=== PATIENT | male | born 1955 | race Caucasian/White ===

== ENCOUNTER 2017-12-10 21:02 | Inpatient (IN) | payer OTHER ==
[~2017-12-10] VITALS: Ht 170.2 cm; Wt 72.6 kg
--- NOTE | 2017-12-10 23:10 | NUR ---
INTAKE ASSESSMENT BP: 169/95, HR:89, RR:16, SpO2: 95%, T: 98 Pt is in stable condition and able to be admitted on the unit. Unit protocols regarding medications and vital signs every four hours were explained. Pt verbalized understanding. Will continue admission upon arrival on the unit.
[2017-12-10] MEDS ORDERED: IBUP1CAP13 PO (23:22)
[2017-12-10] MEDS ORDERED: DICYCLOMINE HCL 20 MG TABLET PO PRN (23:30)
[2017-12-10] MEDS ORDERED: MAG HYDROX/AL HYDROX/SIMETH 30 ML LIQUID UDC PO PRN (23:30)
[2017-12-10] MEDS ORDERED: LORAZEPAM 2 MG/1 ML VIAL IM PRN (23:30)
[2017-12-10] MEDS ORDERED: MAGNESIUM HYDROXIDE 30 ML LIQUID UDC PO PRN (23:30)
[2017-12-10] MEDS ORDERED: THIAMINE HCL 200 MG/2 ML VIAL IM ONE (23:30)
[2017-12-10] MEDS ORDERED: MIRALAX 17 GM POWD.PACK PO PRN (23:30)
[2017-12-10] MEDS ORDERED: ONDANSETRON ODT 4 MG TAB.RAPDIS SL PRN (23:30)
[2017-12-10] MEDS ORDERED: ONDANSETRON 4 MG/2 ML VIAL IM PRN (23:30)
[2017-12-10] MEDS ORDERED: LORAZEPAM 1 MG TABLET PO PRN ×2 (23:30)
[2017-12-10] MEDS ORDERED: LOPERAMIDE HCL 2 MG CAPSULE PO PRN ×2 (23:30)
[2017-12-10] MEDS ORDERED: IBUPROFEN 400 MG TABLET PO PRN (23:30)
[2017-12-10] MEDS ORDERED: ACETAMINOPHEN 325 MG TABLET PO PRN (23:30)
--- NOTE | 2017-12-10 23:30 | NUR ---
Admission note Pt is a 62 yo male, A+Ox4, presenting to [facility] for medically supervised ETOH withdrawal. Pt has NKA, is on DNR code status, and on Regular diet. Pt is 5'7" in height and 160 LBS in weight. Pt does not appear intoxicated, is well groomed, clothing in good condition, and has no apparent odor. Pt appears mildly anxious and agitated at this time. Respirations even and unlabored. Substance use/History Pt reports first starting to drink alcohol at the age of 18. Pt states, "I was just young and wanted to libertarian with my friends. I first started taking Ambien 3 months ago for insomnia. I used to take Tramadol frequently about 5 years ago which led me to go to treatment 4 years ago and ever since then i haven't taken it". 1. ETOH- first started drinking at the age of 18- currently drinking 4 to 6 beers 1x/week- Last drink was 4 beers on 12-09-17. 2. Ambien- first stated taking 3 months ago PO -currently taking 10mg QHS for insomnia- Last dose was 50mg on 12-09-17. Withdrawal Pt does not appear intoxicated at this time. Pt expresses typical withdrawal symptoms as, "just anxiety and agitation". Pt is currently noted with mild anxiety and agitation but in stable condition. W/S WNL. Consequences of Alcohol abuse Pt has no HX of seizure, withdrawal induced delirium, withdrawal induced cardiac complications, overdose. Pt states, "I may have had some blackouts when i was younger, but not any that i can recall. The only real problem that my drinking has caused me is that my does not like it very much, she is the type of person that thinks that if someone has just 1 drink then they are an alcoholic, i have been a severe alcoholic before so maybe she is right about me. Whenever my gets me upset or depressed, i tend to go buy a 6 pack and drink. I have never been to snf or gotten a DUI for drinking. One thing i will say though is that my brother has had alcohol/substance abuse issues and is now homeless and i don't even know if he's or alive, some people tell me that he's but i really have no idea". Medical/Psychiatric conditions 1. Anxiety- undiagnosed 2. Depression- undiagnosed 3. Insomnia- diagnosed 3 months ago 4. Left foot SX/Neuropathy - procedure performed " about 5 years ago" Pt has a primary care provider named Dr. Muñoz Psychiatric complications Pt has no HX of any psychiatric holds or episodes on delirium nor psychosis. Pt has no HX of SI/SA/HI. Treatment HX Pt expresses that the last time he was in treatment was for 3 weeks at "[facility]" in [place], [place] 4 years ago and continued sobriety for a total of 6 months from Mar 2013 - September 2013. Motivation Pt states, "I want to stop drinking so that i can go back to being sober and happy, to set a good example for my son, and to keep my happy. I don't usually have too many withdrawal symptoms besides anxiety and agitation. I have my friends from and my sponsor to thank for supporting me for a very long time. I am not sure what will be different this time but i am going to try my best." Respirations even and unlabored. Will continue to monitor. Addendum: 12/11/17 at 0708 by DANI DEL ANGEL LVN Pt has been drinking alcohol at a rate of 4 to 6 beers 1x/week for "about the past 3 years".
[2017-12-10 23:59] LABS: BASOPHILS # (AUTO) 0.1 K/uL (0.0-8.0); BASOPHILS % (AUTO) 0.9 % (0.0-2.0); EOSINOPHILS # (AUTO) 0.2 K/uL (0.0-0.7); EOSINOPHILS % (AUTO) 1.8 % (0.0-7.0); HEMOGLOBIN 13.7 g/dL (12.5-16.3); LYMPHOCYTES % (AUTO) 30.1 % (20.5-51.5); MEAN CORPUSCULAR HEMOGLOBIN 31.2 uug (23.8-33.4); MEAN CORPUSCULAR HGB CONC 35 g/dL (32.5-36.3); MONOCYTES # (AUTO) 0.5 K/uL (2.0-10.0); MONOCYTES % (AUTO) 5.4 % (0.0-11.0); NEUTROPHILS # (AUTO) 6.1 K/uL (1.8-8.9); NEUTROPHILS % (AUTO) 61.8 % (38.5-71.5); PLATELET COUNT (AUTO) 315 K/uL (152-348); RED BLOOD CELL COUNT(AUTO) 4.39 MIL/uL (4.06-5.63); WHITE BLOOD COUNT (AUTO) 9.9 K/uL (3.6-10.2)
[2017-12-11] MEDS: diphenhydrAMINE 50 MG CAPSULE PO PRN (00:14)
--- NOTE | 2017-12-11 00:14 | NUR ---
PRN Benadryl Pt c/o inability to sleep and requested for PRN Benadryl. Medication given and tolerated well. Will reassess within 1 HR. Will continue to monitor.
[2017-12-11 00:17] LABS: *AMPHETAMINE, URINE NEGATIVE (NEGATIVE); *BARBITURATE, URINE NEGATIVE (NEGATIVE); *CANNABINOID, URINE NEGATIVE (NEGATIVE); *COCCAINE, URINE NEGATIVE (NEGATIVE); *OPIATE, URINE NEGATIVE (NEGATIVE); *PHENCYCLIDINE SCREEN,URINE NEGATIVE (NEGATIVE)
[2017-12-11 00:19] LABS: ETHANOL < 3 MG/DL (0-0)
[2017-12-11 00:28] VITALS: BP 157/92
[2017-12-11 00:36] LABS: ALANINE AMINOTRANSFERASE 27 U/L (16-63); ALKALINE PHOSPHATASE 72 U/L (50-136); AMYLASE 37 U/L (25-115); ASPARTATE AMINOTRANSFERASE 16 U/L (15-37); BILIRUBIN,TOTAL 0.6 mg/dL (0.2-1.0); CARBON DIOXIDE 26 mmol/L (21-32); CHLORIDE 104 mmol/L (98-107); CREATININE 1.1 mg/dL (0.6-1.3); GLUCOSE 150 mg/dL (74-106); LIPASE 79 U/L (73-393); MAGNESIUM 1.9 mg/dL (1.8-2.4); POTASSIUM 3.2 mmol/L (3.5-5.1); TOTAL PROTEIN, SERUM 7.9 g/dL (6.4-8.2); UREA NITROGEN, BLOOD 28 mg/dL (7-18)
[2017-12-11 01:05] LABS: THYROID STIMULATING HORMONE 1.927 mIU/mL (0.358-3.740)
--- NOTE | 2017-12-11 01:10 | NUR ---
PRN Benadryl Reassessment Medication effective. Pt is resting well in bed. No s/s of ASE noted at this time. Respirations even and unlabored. Will continue to monitor.
--- NOTE | 2017-12-11 01:43 | NUR ---
PRN Maalox Pt c/o heartburn and requested for PRN Maalox. Medication given and tolerated well. Respirations even and unlabored. Will reassess within 1 HR. Will continue to monitor.
--- NOTE | 2017-12-11 02:40 | NUR ---
PRN Maalox Reassessment Medication effective. Pt expresses reduction of heartburn. No s/s of ASE noted at this time. Respirations even and unlabored. Will continue to monitor.
[2017-12-11] MEDS ORDERED: ZOLP10TA2 PO (04:19)
--- NOTE | 2017-12-11 07:00 | NUR ---
End of shift note Newly admitted patient. Pt was continuously noted with restlessness, agitation and anxiety. Pt remained in room for majority of shift except to get to get food from kitchen. Pt remained cooperative and compliant with all aspects of treatment. Pt was given PRN Benadryl @0014 and PRN Maalox @0143. Pt remains on PRN Ativan until further evaluation from MD in AM. Pt slept for a total of 6 HRS. Last CIWA: 6 @0028. Respirations even and unlabored. Will endorse to day shift nurse.
--- NOTE | 2017-12-11 07:30 | NUR ---
START OF SHIFT Rcvd endorse from ongoing nurse, client is in bed, lying on his L side, noted with flushed face, he sounds asleep, easy to arouse, RR 16, even,non-labored. PRN Maalox 30mL PO for heartburn, Benadryl 50mg PO for sleep, client slept 6 hrs. Seizure precautions in place. call light within reach.
[2017-12-11 08:32] VITALS: BP 154/99
[2017-12-11] MEDS: FOLIC ACID 1 MG TABLET PO SCH (08:59)
[2017-12-11] MEDS: MULTIVITAMINS,THERAPEUTIC TABLET PO SCH (08:59)
[2017-12-11] MEDS: THIAMINE HCL 100 MG TABLET PO SCH (08:59)
[2017-12-11] MEDS ORDERED: TUBERCULIN,PURIF.PROT.DERIV. 5 TU/0.1 ML TEST ID ONE (09:00)
[2017-12-11] MEDS: CLONIDINE HCL 0.1 MG TABLET PO PRN (09:00)
[2017-12-11] MEDS ORDERED: POTASSIUM CHLORIDE 20 MEQ TAB.PRT.SR PO ONE (09:00)
[2017-12-11] MEDS: HYDROXYZINE PAMOATE 25 MG CAPSULE PO PRN (09:00)
--- NOTE | 2017-12-11 09:00 | NUR ---
CIWA 12 & PRN Ativan 1mg PO, Clonidine 0.1mg PO, Vistaril 50mg PO administered for restlessness, difficulty concentrating, tremors felt, irritability, agitation and anxiety. Call light within reach.
--- NOTE | 2017-12-11 09:01 | NUR ---
Client refused PPD test, he denies any chest pain, night sweats, or cough. MD notified.
--- NOTE | 2017-12-11 09:02 | NUR ---
Potassium 3.2 replaced with K-dur 40 mEq PO
--- NOTE | 2017-12-11 10:00 | NUR ---
reassess PRN Ativan 1mg PO, Clonidine 0.1mg PO, Vistaril 50mg PO, client is sitting at the edge of bed, stating, "I do feel better, less anxious and irritable, I felt like I was losing it before you gave me those medications." TODD 5. Call light within reach.
[2017-12-11 12:30] VITALS: BP 119/88
--- NOTE | 2017-12-11 12:30 | NUR ---
CIWA 5 Client presents with anxious mood, tremors felt, he denies nausea, visual, auditory, or tactile hallucinations. Client declined PRN medications to help manage anxiety. Deep breathing techniques demonstrated, client returned demonstration. Will continue to monitor. Call light within reach.
[2017-12-11 16:58] VITALS: BP 140/79
--- NOTE | 2017-12-11 17:07 | NUR ---
CIWA 4 Client continues to present with anxious mood and flat affect. Client declines PRN medication to manage his anxiety, stating, "No, I'll be ok. I'm just anxious to go into treatment tomorrow." Mata light within reach.
--- NOTE | 2017-12-11 19:15 | NUR ---
END OF SHIFT Endorse client to incoming nurse, client is in room, a/o x 4. Client continues to present with anxious mood and flat affect. Client was admitted for alcohol withdrawal. Client's schedule for discharge tomorrow am to [facility]. Last CIWA 4 @ 1600. Adequate PO fluid intake 1900 mL, void x 3. Client is not compliant with group therapy. Consumes 25-50% of meals. Call light within reach.
--- NOTE | 2017-12-11 19:16 | NUR ---
Start of shift note Received report from day shift nurse. Pt is a 62 yo male, A+Ox4, presenting to [facility] for medically supervised ETOH withdrawal. Pt was also taking Ambien. Pt noted with anxiety, agitation, and restlessness. Pt has HX of Anxiety, Depression, Insomnia, and Left foot neuropathy which will be monitored during shift. Pt is on PRN medications, tolerated well, and is due for discharge tomorrow. Respirations even and unlabored. Will continue to monitor.
[2017-12-11 20:12] VITALS: BP 141/86
--- NOTE | 2017-12-11 20:12 | NUR ---
CIWA Assessment CIWA: 6. Pt noted with Anxiety and agitation. Respirations even and unlabored. Will continue to monitor.
[2017-12-12 00:50] VITALS: BP 143/85
--- NOTE | 2017-12-12 00:50 | NUR ---
CIWA Assessment CIWA: 4. Pt noted with anxiety and agitation. Respirations even and unlabored. Will continue to monitor.
[2017-12-12] MEDS: diphenhydrAMINE 50 MG CAPSULE PO PRN (00:52)
--- NOTE | 2017-12-12 00:52 | NUR ---
PRN Benadryl Pt c/o inability to sleep and requested for PRN Benadryl. Medication given and tolerated well. Will reassess within 1 HR. Will continue to monitor.
--- NOTE | 2017-12-12 04:07 | NUR ---
V/S refused and CIWA Assessment deferred for sleep. Respirations even and unlabored. Will continue to monitor.
[2017-12-12 04:08] LABS: HEPATITIS B SURFACE AG Negative (Negative)
--- NOTE | 2017-12-12 07:00 | NUR ---
End of shift note Pt was continuously noted with agitation, restlessness, and anxiety. Pt remained in room for majority of shift except to get food from kitchen. Pt remained compliant and cooperative with all aspects of treatment. Pt was given PRN Benadryl @0052. Pt remains on PRN medications, tolerated well, and is due for discharge today. Pt slept for a total of 5 HRS. Last CIWA: 4 @0050. Respirations even and unlabored. Will endorse to day shift nurse.
[2017-12-12] MEDS: HYDROXYZINE PAMOATE 25 MG CAPSULE PO PRN (07:36)
[2017-12-12] MEDS: CLONIDINE HCL 0.1 MG TABLET PO PRN (07:38)
--- NOTE | 2017-12-12 07:38 | NUR ---
START OF SHIFT & PRN Clonidine 0.1mg PO, Vistaril 50mg PO for agitation and anxiety. Endorse rcvd from ongoing nurse, client is in room, he presents with agitated, anxious mood, flat affect. He stated, "I am so anxious, I am not sure if I'm going to treatment or home, or if my is coming to pick me up, and I need my phone, my sent it fed-ex yesterday, so obviously I can't leave until I get my phone, right?" Discuss discharge instructions with client. Told him that discharge staff will come and see him before he is discharge to assist him with answer regarding his phone. Above medication administered, will continue to monitor. Last CIWA 4 @ 2400. PRN Benadryl 50mg PO for sleep, client slept 5 hrs. Seizure precautions in place. Call light within reach.
[2017-12-12] MEDS: MULTIVITAMINS,THERAPEUTIC TABLET PO SCH (08:26)
[2017-12-12] MEDS: FOLIC ACID 1 MG TABLET PO SCH (08:26)
[2017-12-12] MEDS: THIAMINE HCL 100 MG TABLET PO SCH (08:26)
--- NOTE | 2017-12-12 08:38 | NUR ---
Reassess PRN Clonidine 0.1mg PO, Vistaril 50mg PO, client reports feeling less anxious and agitated and he is ready to go into treatment.
[2017-12-12 08:45] VITALS: BP 146/88
--- NOTE | 2017-12-12 09:51 | NUR ---
Discharge note Client discharged in stable condition with all valuable, belongings and home medication. Client denies SI/HI. To home via private car.
== END 2017-12-12 09:51 | disposition home or self-care (01) | DRG 895 ==
LOC: SRC 22:21 → EDBD 22:21
PROVIDERS: ADMIT Family Medicine Addiction Medicine; ATTEND Family Medicine Addiction Medicine
PROC: HZ2ZZZZ Detoxification Services for Substance Abuse Treatment (ICD-10-PCS; principal; 2017-12-10)
PROC: HZ51ZZZ Individual Psychotherapy for Substance Abuse Treatment, Behavioral (ICD-10-PCS; 2017-12-12)
DX: F10.230 Alcohol dependence with withdrawal, uncomplicated (principal); Y90.0 Blood alcohol level of less than 20 mg/100 ml; F41.1 Generalized anxiety disorder; G47.00 Insomnia, unspecified; Z81.1 Family history of alcohol abuse and dependence; F32.9 Major depressive disorder, single episode, unspecified
CPT/HCPCS: 36415; 80307; 83690; 83735; 84443; 85025; 86592; 86705; 86803; 87340; 87806; G0480; Q0163